=== PATIENT | female | born 1970 | race Caucasian/White ===

== ENCOUNTER 2021-05-31 01:54 | Day surgery (SDC) | payer OTHER, SELFPAY ==
[2021-05-18 15:07] VITALS: BMI 21.9
--- NOTE | 2021-05-18 15:10 | PC.NURSE ---
Report to the Outpatient Waiting Room, entrance under the green pavilion located off [facility], at time on date . OR Time: . - You and your visitor will be asked a series of questions to screen for COVID 19 for your protection. - A mask is required within the hospital. - Only one visitor is allowed at this time. Patient visitors will be guided where to wait when not with patient. Preoperative COVID Testing Requirements: No COVID Test needed if: (proof is required; if not received patient will have Rapid Test prior to entry) - Patient has received COVID Vaccine at least 14 days prior to procedure date or - Patient has positive COVID test result within last 90 days of surgery date. COVID Test needed if above criteria is not met If not COVID vaccinated a COVID test must be conducted within 72 hours of surgery and patient is asked to isolate self from time of testing until procedure. You will go to the [facility] ([facility]) [facility] Testing Site for your COVID testing. The [facility] Content Database ([facility] Thru Testing site is located at the corner of [address] [facility]. You will only be called if COVID results are positive and your surgeon may reschedule your elective surgery date. Patients may have clear liquids (water, carbonated beverages, clear teas, apple juice) until 3 hours prior to surgery with a maximum of 20 ounces. - No food from midnight until time of surgery - Infants may have breast milk until 4 hours before surgery, formula 6 hours prior to surgery. - Children will be allowed to drink immediately following surgery. If applicable, please bring a bottle or sippy cup to assist with drinking. Juice, water, soda, and popsicles are readily available. For infants on formula, please bring formula the day of surgery. Pacifiers are allowed. Take the following medications with a SIP of water the morning of surgery: _xanax Medications to discontinue per physician ____vitamins Date to take last dose___05/28/21 Please no make-up, nail vietnamese, hairspray, perfume, deodorant, or body powder the day of surgery. No jewelry (including any body piercings) or valuables the day of surgery, leave them at home. Please take a shower or bath the night before, or the morning of, surgery with an antibacterial soap. Wear comfortable, loose fitting clothing. Children are encouraged to wear pajamas. - Jewelry must be removed prior to entering the operating room. Rings and piercings that are not removed may be cut off. - The hospital will not accept responsibility for valuables. - Please leave all valuables, including medications, at home the day of surgery. If you are going home after surgery, a licensed courtesy bus driver must drive you home. - NO public transportation without another adult. - We recommend that an adult stay with you for 24 hours following discharge. - We also recommend that you do not drive, make important decision, drink alcoholic beverages, or take any drugs that were not prescribed by your health care provider for at least 24 hours after your discharge time. For Pediatric surgeries, we recommend two adults accompany the child home (only one inside the building at this time). Follow any additional instructions given to you from your surgeon. Telephone instructions given to sylvain garrett and asked if any additional questions and then verbalized understanding. Patient advised to call surgeon office or pre surgery nurse liaison [phone] if any additional questions.
[2021-05-31] VITALS (10 sets, daily range): BP systolic 127–162; BP diastolic 56–91; PULSE 67–83; RESP 10–23; TEMP 36.6–36.8; O2SAT 97–100
[2021-05-31] MEDS: ACETAMINOPHEN 500 MG TABLET 1000 MG PO (08:46)
[2021-05-31] MEDS: LACTATED RINGERS 1,000 ML 30 ML IV CONT ×2 (09:15→11:24)
[2021-05-31] MEDS: OXYMETAZOLINE HCL 0.05% NAS 15 ML BTL (*BKC) 1 SPRAY NASAL (09:20)
[2021-05-31] MEDS: SCOPOLAMINE 1.5 MG PATCH TRANSDERM (09:35)
--- NOTE | 2021-05-31 09:35 | WPDANESEPPF ---
Anes - Initial Pre Proc Eval Procedure: Operation Date: 05/31/21 10:30 Proposed Procedures p Image Guided Bilateral Maxillary Antrostomy, Bilateral Ethmoidectomy, Bilateral Turbinate Reduction with Micro Debridement, - Emilio Andrade MD s Septoplasty - Emilio Andrade MD Date/Time: 05/31/21 09:35 Surgeon: Emilio Andrade MD Pre Op Diagnosis: chronic sinusitis, deviated septum,turb hypertroph Patient Data Age: 50 Gender: F Height: 1.66 m Weight: 60.9 kg Allergies Allergy/AdvReac Type Severity Reaction Status Date / Time levofloxacin [From Levaquin] Allergy Mild HIVES/RASH Verified 05/31/21 08:44 adhesive AdvReac Intermediate Blister Verified 05/31/21 08:44 Penicillins AdvReac Mild YEAST Verified 05/31/21 08:44 INFECTION Home Medications Medication Instructions Recorded Confirmed Type [employer] Advantage 1 tab-cap PO DAILY 05/18/21 05/31/21 History alprazolam 0.5 mg PO PRN 05/18/21 05/31/21 History cholecalciferol (vitamin D3) 100 mcg PO DAILY 05/18/21 05/31/21 History [Vitamin D3] estradiol [Divigel] 1.25 mg TOPICAL DAILY 05/18/21 05/31/21 History linaclotide [Linzess] 145 mcg PO DAILY 05/18/21 05/31/21 History magnesium 200 mg PO DAILY 05/18/21 05/31/21 History montelukast 10 mg PO DAILY 05/18/21 05/31/21 History progesterone micronized 100 mg PO DAILY 05/18/21 05/31/21 History vitamin E 30 unit PO DAILY 05/18/21 05/31/21 History Patient hx anesthesia problems: other (motion sickness) Family hx anesthesia problems: none Results Review: All pre-operative results and documents have been reviewed as part of the pre-operative evaluation. [facility] Past Medical History Medical History Anxiety Depression Social History Social History Smoking status: Current every day smoker Tobacco type: cigarettes Additional smoking assessment comments: 10 cigarettes a month Alcohol intake: current Drinks per week: 2 Living arrangements: with family Spiritual care concerns: No Anes - Eval Final PreProcedure Day of Procedure 05/31/21 09:35 Patient weight: normal Heart: regular rate and rhythm Lungs: clear to auscultation Airway: Mallampati scale class II Neurological: alert and oriented Last oral intake: >/= 8 hours ASA classification: II Emergent: no Anesthetic plan: proceed Anesthesia type and monitoring: general ETT and standard monitoring Results Review: All pre-operative results and documents have been reviewed as part of the pre-operative evaluation. Informed Consent: The patient's anesthetic plan and its attendant risks and benefits were discussed with the patient/family/POA. Questions were solicited and answers provided to the satisfaction of the patient/family/POA.
--- NOTE | 2021-05-31 09:51 | PM.IMHP ---
H&P: HPI History of Present Illness Date/Time: 05/31/21 09:51 Chief Complaint: chronic sinusitis Narrative: chronic sinusitis Review of Systems Review of Systems: All systems reviewed & are unremarkable except as noted in HPI and below PMFSH Past Medical History Medical History Anxiety Depression Social History Social History Smoking status: Current every day smoker Tobacco type: cigarettes Additional smoking assessment comments: 10 cigarettes a month Alcohol intake: current Drinks per week: 2 Living arrangements: with family Spiritual care concerns: No Meds Home Medications and Allergies Home Medications Medication Instructions Recorded Confirmed Type Heart Health Advantage 1 tab-cap PO DAILY 05/18/21 05/31/21 History alprazolam 0.5 mg PO PRN 05/18/21 05/31/21 History cholecalciferol (vitamin D3) 100 mcg PO DAILY 05/18/21 05/31/21 History [Vitamin D3] estradiol [Divigel] 1.25 mg TOPICAL DAILY 05/18/21 05/31/21 History linaclotide [Linzess] 145 mcg PO DAILY 05/18/21 05/31/21 History magnesium 200 mg PO DAILY 05/18/21 05/31/21 History montelukast 10 mg PO DAILY 05/18/21 05/31/21 History progesterone micronized 100 mg PO DAILY 05/18/21 05/31/21 History vitamin E 30 unit PO DAILY 05/18/21 05/31/21 History Allergies Allergy/AdvReac Type Severity Reaction Status Date / Time levofloxacin [From Levaquin] Allergy Mild HIVES/RASH Verified 05/31/21 08:44 adhesive AdvReac Intermediate Blister Verified 05/31/21 08:44 Penicillins AdvReac Mild YEAST Verified 05/31/21 08:44 INFECTION Exam Narrative: deviated septum, chronic sinusitis,rest of exam wnl Assessment and Plan Assessment and plan (1) Chronic sinusitis: Qualifiers: Sinusitis location: maxillary Qualified Code(s): J32.0 - Chronic maxillary sinusitis Code(s): J32.9 - Chronic sinusitis, unspecified Status: Acute Assessment and Plan: Septoplasty/FESS. Refer to outpt H&P for full details. r/b/a reviewed.
--- NOTE | 2021-05-31 09:52 | WPDHPUPDATE1 ---
History and Physical Update Update Date/Time: 05/31/21 09:52 History and Physical has been reviewed, including an updated exam of the patient. There are NO changes in the patient's condition. Risks, benefits, and alternatives have been discussed and questions answered. Patient agrees to proceed with procedure.
[2021-05-31] MEDS: ceFAZolin 2 GM/D5W 50 ML 2 GM/50 ML BAG IVPB (10:09)
[2021-05-31] MEDS: LIDO 1%/EPINEPHRINE/PF 1:200,000 30 ML VIAL 6 ML XX (11:12)
--- NOTE | 2021-05-31 11:16 | W.PM.PROC2 ---
Procedure Note - Detailed Date of Procedure 05/31/21 Pre-op Diagnosis chronic sinusitis, deviated septum,turb hypertroph Post-op Diagnosis same Procedure Performed Septoplasty, turbinplasty, bilateral maxillary antrostomy, endoscopic. Surgeon Emilio Andrade MD Anesthesia general Indications Chronic sinusitis and deviated septum Findings Left maxillary thick mucous. Performed bilateral minimal anterior ethmoidectomy. Description of Procedure On the date of procedure the patient was met in the preoperative area and risk and benefits of the procedure reviewed with the patient as documented in the H&P and they elected to proceed with surgery. Patient was brought back to the operating room by the anesthesia team and underwent general endotracheal anesthesia. Once an adequate plane of anesthesia was obtained a timeout was performed to assure the patient identification the patient here to be performed were correct. They were.The patient was then prepped and draped in the normal fashion for endoscopic sinus surgery. The diffusion image guidance system was calibrated and used for the entire case. Afrin-soaked pledgets were placed in the nasal cavities bilaterally. The entire case was performed under endoscopic visualization. The right side was narrowed due to septal deviation.? Thus, septoplasty was required.? A left hemitransfixion incision was made in the left caudal septum and a mucoperichondrial flap was elevated in the usual fashion. The flap was elevated under endoscopic visualization and the remainder of the case was performed with endoscopic assistance. Using a D-knife, an incision was made through the cartilaginous septum with care to preserve the appropriate caudal and dorsal ?L-strut? of cartilage. The cartilage was then disarticulated from the bony-cartilaginous junction and the deviated cartilage was removed. Further deviated bone and cartilage was removed from the maxillary crest and posterior bony septum with care to avoid injury to the mucoperichondrial flap using a combination of dissection and Lior-Alisia forceps. Once this was completed, the hemitransfixion incision was closed using simple interrupted 4-0 chromic suture. A quilting stitch to reapproximate the mucoperichondrial flaps was then placed using 4-0 plain gut suture on a Al needle. 1% lidocaine with 1:100,000 epinephrine was then injected into the root of the middle turbinate and lateral nasal wall. Attention was first directed towards the right side. The middle turbinate was medialized and the osteomeatal complex was identified with a puja probe. Using a 90 degree backbiter, the uncinate process was reflected anteriorly and removed using a combination of sharp and powered dissection. The maxillary antrostomy was then created and widened by identifying the natural ostia and opening the sinus with straight torie-cut forceps, backbiter, and microdebrider. The middle turbinate was atrophic and lateralized and required partial muddle turbinate trimming with the microdebrider. The bulla ethmoidalis was then dissected with the microdebrider, preserving the basal lamella. Next, the left maxillary antrostom and anterior ethmoidectomy were carried out in identical fashion. There was thick mucous within the left maxillary sinus that was debrided and removed. No clinical evidence of CSF throughout the case. Novapore packing was placed in the ethmoid acvities bilaterally. Hemostasis was ensured. Lastly, the bilateral inferior turbinates were reduced submucosally using 2mm microdebrider and then outfractured with a sayer elevator. This significantly opened the airway. Carrillo splints were then placed to secure the septum in the midline.? At this point, the procedure was concluded. Care the patient was transferred back to the anesthesia team and the patient was awoke in the operating room and transferred back to the PACU in stable condition. Emiloi Andrade M.D. Estimated Blood Loss 20 Drains No
[2021-05-31] MEDS: fentaNYL CITRATE INJ (*CRX) 100 MCG/2 ML VIAL 25 MCG IV PUSH ×5 (11:25→11:55)
[2021-05-31] MEDS: ONDANSETRON INJ 4 MG/2 ML VIAL IV PUSH (11:27)
[2021-05-31] MEDS: diphenhydrAMINE HCl INJ 50 MG/ML VIAL 25 MG IV PUSH (11:51)
[2021-05-31] MEDS: oxyCODONE HCL (*CRX) 5 MG TAB IR PO (12:58)
== END 2021-05-31 13:40 | disposition home or self-care (01) ==
PROVIDERS: Visit Provider Otolaryngology
PROC: (CPT 30520; principal; 2021-05-31 10:30)
PROC: (CPT 30520; 2021-05-31 10:30)
DX: J32.9 Chronic sinusitis, unspecified (principal); J34.3 Hypertrophy of nasal turbinates; J34.2 Deviated nasal septum; F17.210 Nicotine dependence, cigarettes, uncomplicated; F41.8 Other specified anxiety disorders
CPT/HCPCS: 30520; 31256; 61782; 31254; 30140; A9270; J0330; J0690; J1100; J1200; J2250; J2405; J2704; J3010; J7120